=== PATIENT | male | born 1935 | race Caucasian/White ===

== ENCOUNTER 2021-02-16 15:41 | Emergency (ER) | payer MEDICARE ==
[~2021-02-16] VITALS: Ht 175.3 cm; Wt 76.7 kg
[2021-02-16 17:12] LABS: CREATININE 0.7 mg/dL (0.7-1.3); POTASSIUM 3.9 mmol/L (3.5-5.1)
[2021-02-16 17:18] LABS: ABSOLUTE NEUTROPHILS 2.4 thou/uL (1.4-8.2); BASOPHILS 0.9 % (0.0-2.0); EOSINOPHILS 3.9 % (0.0-3.0); HEMATOCRIT 36.1 % (42.0-52.0); HEMOGLOBIN 11.9 gm/dL (14.0-18.0); LYMPHOCYTES 35.5 % (24.0-44.0); MCHC 32.9 g/dL (28.0-37.0); MCV 91.1 fL (80.0-100.0); MONOCYTES 6.5 % (1.0-8.0); PLATELET COUNT 178 thou/uL (150-400); POLYS 53.2 % (36.0-66.0); RBC 3.96 mil/uL (4.50-6.00); RDW 15.1 % (10.5-14.5); WBC 4.5 thou/uL (4.0-11.0)
[2021-02-16 18:10] LABS: URINE BILIRUBIN NEGATIVE (Negative); URINE BLOOD NEGATIVE (Negative); URINE CLARITY CLEAR; URINE COLOR YELLOW; URINE GLUCOSE-RANDOM* TRACE (Negative); URINE KETONES NEGATIVE (Negative); URINE LEUKOCYTES-REFLEX NEGATIVE (Negative); URINE NITRITE-REFLEX NEGATIVE (Negative); URINE PROTEIN (DIPSTICK) NEGATIVE (Negative); URINE SPECIFIC GRAVITY >= 1.030 (1.005-1.035)
[2021-02-16] MEDS ORDERED: VENLAFAXINE HCL75 M1 PO (19:11)
[2021-02-16] MEDS ORDERED: LEVOTHYROXINE150 MCG PO (19:11)
[2021-02-16] MEDS ORDERED: ARIPIPRAZOLE5 MG PO (19:12)
[2021-02-16] MEDS ORDERED: AMBIEN 5 MG TABL5 M1 PO (19:12)
[2021-02-16] MEDS ORDERED: CLOPIDOGREL75 MG PO (19:12)
[2021-02-16] MEDS ORDERED: METOPROLOL SUCC25 M1 PO (19:12)
[2021-02-16] MEDS ORDERED: EUTHYROX150 MCG PO (19:12)
[2021-02-16] MEDS ORDERED: DICYCLOMINE HCL20 MG PO (19:12)
[2021-02-16] MEDS ORDERED: LIPITOR 40 MG T40 M1 PO (19:13)
[2021-02-16] MEDS ORDERED: METFORMIN HCL500 M1 PO (19:13)
[2021-02-16] MEDS ORDERED: GABAPENTIN 100100 MG PO (19:13)
[2021-02-16] MEDS ORDERED: ALENDRONATE SOD70 MG PO (19:13)
[2021-02-16 20:16] VITALS: BP 129/63
--- NOTE | 2021-02-17 08:16 | EKG ---
[address] [employer] [place] [address] ELECTROCARDIOGRAM REPORT Name: TRISTA RAGLAND Room #: MATTHEW Valerio#: [id number] Admission: 02/16/21 Attend Phys: Discharge: 02/16/21 Date of : 39 Report #: [id number] ED Test Date: 2021-02-16 Test Time: 16:27:13 Pat Name: TRISTA RAGLAND Department: Room: Gender: Asparagus Buncher: Leandra : 1935 Requested By: Hailey Quintanilla Order Number: [id number] MD: Lauri Medina Measurements Intervals [place] Rate: 73 P: 21 FL: 165 QRS: 60 QRSD: 99 T: 60 QT: 446 QTc: 492 Interpretive Statements Sinus rhythm Borderline prolonged QT interval No previous ECG available for comparison Electronically Signed On 02-17-2021 8:16:07 PHLEBOTOMY SERVICES REPRESENTATIVE by Lauri Medina [email or web address] <ELECTRONICALLY SIGNED> By: Lauri Medina MD, [facility] 02/17/21 0816 1627 1627 Lauri Medina MD, FACC /EPI
== END 2021-02-16 20:29 ==
LOC: ER 15:41
PROVIDERS: Emergency Medicine
DX: F03.91 Unspecified dementia, unspecified severity, with behavioral disturbance (principal); Z20.822 Contact with and (suspected) exposure to COVID-19; Z79.899 Other long term (current) drug therapy

== ENCOUNTER 2021-02-16 17:01 | Inpatient (IN) | payer MEDICARE ==
[~2021-02-16] VITALS: Ht 170.2 cm; Wt 80.3 kg
[2021-02-16] MEDS ORDERED: VENLAFAXINE HCL75 M1 PO (19:11)
[2021-02-16] MEDS ORDERED: LEVOTHYROXINE150 MCG PO (19:11)
[2021-02-16] MEDS ORDERED: METOPROLOL SUCC25 M1 PO (19:12)
[2021-02-16] MEDS ORDERED: EUTHYROX150 MCG PO (19:12)
[2021-02-16] MEDS ORDERED: DICYCLOMINE HCL20 MG PO (19:12)
[2021-02-16] MEDS ORDERED: ARIPIPRAZOLE5 MG PO (19:12)
[2021-02-16] MEDS ORDERED: CLOPIDOGREL75 MG PO (19:12)
[2021-02-16] MEDS ORDERED: AMBIEN 5 MG TABL5 M1 PO (19:12)
[2021-02-16] MEDS ORDERED: METFORMIN HCL500 M1 PO (19:13)
[2021-02-16] MEDS ORDERED: GABAPENTIN 100100 MG PO (19:13)
[2021-02-16] MEDS ORDERED: ALENDRONATE SOD70 MG PO (19:13)
[2021-02-16] MEDS ORDERED: LIPITOR 40 MG T40 M1 PO (19:13)
[2021-02-16 19:30] VITALS: BP 149/59
[2021-02-17 04:13] LABS: CHOLESTEROL 137 mg/dL (<200); HDL CHOLESTEROL 39 mg/dL (>40); LDL CHOLESTEROL 58 mg/dL (<100); TC:HDL 3.5 Ratio (Not establshd); TRIGLYCERIDE 204 mg/dL (<150); VLDL 41 mg/dL (<40)
--- NOTE | 2021-02-17 04:18 | NUR ---
02/16/21 arrived on the [facility] floor @ 2100, accompanied by x1 staff from [facility] ED. Transferred to bed 527B. A&OX1 ORIENTED TO PERSON ONLY. KNOWS HIS BUT DOES NOT KNOW TODAYS DATE. POST FALL ON 01/28, PATIENT HAD A BRAIN BLEED WHICH WAS TREATED @ ANOTHER HOSPITAL. RESIDES @ HOME WITH AND A GRANDSON IS TEMPORARY IN THE HOME TO ASSIST WITH THE PATIENT'S CARE. PATIENT HAS BECOME AGRESSIVE AND PHYSICALY COMBATITIVE WITH THE GRANDSON. ADMITTED WITH DX OF DEMENTIA WITH BEHAVIORS. INCREASE IN CONFUSION AND AGRESSION. UA NEGATIVE FOR INFECTION. ACTIVITY UP WITH WALKER, ALTHOUGH FORGETS TO USE HIS WALKER, WHICH IS WORSE AT NIGHT. FAMILY REPORTS BEHAV BECOMES WORSE IN THE AFTERNOON AND OVERNIGHT. HISTORY OBTAINED FROM GRANDDAUGHTER WHO IS THE DPOA, AND GAVE CONSENT TO TREAT. PATIENT WEARS GLASSES THAT HE HAS WITH HIM, DENTURES WHICH ARE IN HIS BATHROOM AND HAVE BEEN CLEANED. HAS A CPAP WHICH IS NOW IN THE MED ROOM. OWNS HEARING AIDES, BUT DOES NOT WEAR THEM AND ARE AT HOME. COVID PCR IS NEGATIVE. TAKES MEDS WHOLE WITH WATER. DENIES PAIN, ONLY SKIN ISSUE IS A SMALL SCAB ON THE BACK OF HIS RIGHT HAND. REPORTS HIS HOBBY IS ROMAN CATHOLIC MUSIC. REPORTS THAT HE GOES TO SEVERAL CHURCHES, BUT HAS TROUBLE NAMING THEM OTHER THAT ABLE TO SAY ONE IS A CHRISTIANITY ZOROASTRIAN, AND ONE IS NON-CONGREGATIONAL. HT 5'7" 178.5 LBS. HRRR S1S2 NOTED, LUNGS CTA BILAT, ABD N X 4Q REPORTS HIS LAST BM WAS 2-3 DAYS AGO. TOE NAILS ARE THICK AND LONG, SKIN ON FEET IS DRY BUT INTACT. HIGH FALL RISK WITH A SOUZA SCALE OF 65. NKDA.
[2021-02-17 04:23] LABS: SERUM ASSESSMENT Clear
[2021-02-17 07:30] VITALS: BP 119/46
[2021-02-17 07:45] VITALS: BP 119/46
--- NOTE | 2021-02-17 16:08 | NUR ---
Emailed a request for a medicaid screening to Mahin Astorga with [employer]
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
[2021-02-17 19:30] VITALS: BP 113/66
--- NOTE | 2021-02-17 19:39 | NUR ---
Alert and orientated to name only. Denies SI/HI. Breath sounds clear. Reg HR auscultated. Color pink with brisk capillary refill and palpable peripheral pulses. No edema noted. Brief dry. Active bowel sounds over soft, rounded abdomen.
--- NOTE | 2021-02-17 19:50 | NUR ---
02/17/21 1900, SEATED IN A TRANG CHAIR IN THE DAY ROOM AT START OF SHIFT, APEARS TO BE RESTLESS. TELLS THAT HIS SON TOOK HIM TO THE [facility]AS STATION AT 0100 IN THE MORNING BUT ONLY GOT A LITTLE BIT OF GAS, GOT HOME AT 0300. HRRR, LUNGS CTA ABD N X 4Q. DENY SI/HI DENIES AH/VH. STATES THAT DOES NOT HAVE MUCH ANXIETY, STATES THAT HE HAS DEPRESSION ONCE IN A WHILE, BUT CANNOT FOLLOW THE TRAIN OF THOUGHT TO EXPRESS IF HE HAS DEPRESSION NOW.
[2021-02-17 22:00] VITALS: BP 113/66
[2021-02-18 01:06] LABS: GLYCOHEMOGLOBIN (HGB A1C) 7.2 % (4.8-5.6)
[2021-02-18 08:32] VITALS: BP 129/69
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
[2021-02-18 10:49] VITALS: BP 129/69
--- NOTE | 2021-02-18 13:24 | NUR ---
RESUMMED CARE FROM OVERNIGHT SHIFT THIS AM, PATIENT IN DAY ROOM SITTING QUIET. PATIENT ALERT TO SELF ONLY HE HAS A HISTORY OF A STROKE AND IS A TWO PERSON ASSIST. PATIENT HAS DIFFICULTY WITH WEIGHT BEARING, PATIENT IS A FRR FEED BREAKFAST. TOOK MEDICATION CRUSHED IN PUDDING PATIENTS ABDOMEN SOFT BOWEL SOUNDS PRESENT. PATIENTS LUNGS CLEAR WHENB I ASKED PATIENT ABOUT SI/HI/AH/VH HE SAID NO. WHEN DR MURGUIA ASKED PATIENT ABOUT HOW HE FELT, HE STATED HE DID NOT WANT ANOTHER STROKE. PATIENT ASKED IF HE COULD LIE DOWN FOR A WHILE HE STATES HE IS TIRED. WILL CONTINUE TO MONITOR PATIENT FOR SAFETY AND BEHAVIORS.
--- NOTE | 2021-02-18 17:28 | NUR ---
JARRETT and Dr. Sandoval participated in a family meeting with the Pt's DPOA and . Medication was discussed and placement. The DPOA stated she has spoken with [employer] and started the medicaid application. The family is in agreement to placement and will start to look at facilities in the areas they would like referrals sent to. There were no further questions or concerns. JARRETT will continue to follow.
[2021-02-18 19:42] VITALS: BP 107/70
[2021-02-18 19:45] VITALS: BP 107/70
--- NOTE | 2021-02-19 03:17 | NUR ---
PATIENT CARE WAS RESUMED AT 1900. HE IS AWAKE AND WAS IN THE DININIG ROOM. HE IS ABLE TO COMMUNICATE HIS NEEDS. LUNGS ARE CLEAR, BS ACTIVE X4 QUADS. HE IS INCONTINENT OF BOWEL AND BLADDER. DENIES PAINS/SI/AVH/HI. MAX ASSIT WITH CARE AND PERICARE PROVIDED. MEDS GIVEN WITH APPLE SAUCE. PATIENT IS A FALL RISK AND YELLOW TOP AND SOCKS ARE ON. AMBULATES WITH TRANG-CHAIR.
[2021-02-19 07:15] VITALS: BP 116/70
--- NOTE | 2021-02-19 17:20 | NUR ---
Alert and orientated to name only. Answers some questions coherently but has some confusion. Denies SI/HI. Reported generalized abdominal pain and given Tylenol and milk of magnesia given per order with some relief. [employer] equal and strong, pupils equal and briskly reactive. Calm and compliant most of the day. Breath sounds clear. Reg HR auscultated. Color pink with brisk capillary refill and palpable peripheral pulses. +1 edema in lower extremities. Continent of dark yellow urine. Frequent requests to use bathroom. Dr. Gaming notified, flomax ordered. Slow, slightly unsteady gait with walker, remains on high fall risk precautions. Currently eating dinner without s/o distress.
[2021-02-19 18:45] VITALS: BP 119/73
--- NOTE | 2021-02-20 05:26 | NUR ---
02-19-21 CARE TRANSFERRED 1899. LATER OBSERVED PT RESTING WITH EYES CLOSED IN BED, PT AWAKEN EASILY BUT DROWSY, PT AAOX1, VSS, RR EVEN AND NONLABOED RA. PT DENIES SI/HI AND PAIN AND OBSERVED NO S/S OF PAIN AND NO HI/HI BEHAVIOR. DURING MEDICATION ADMIN PT HAD NO DIFFICULTIES. PT BED WAS ADJUSTED FOR COMFORT. PT WILL CONTINUE TO BE MONITOR PER [facility] PROT[facility].
[2021-02-20 14:50] VITALS: BP 135/63
[2021-02-20 14:56] VITALS: BP 135/63
--- NOTE | 2021-02-20 15:47 | NUR ---
Assummed pt care this morning from overnight shift. Client was in gerichair sitting upright in activity area. Client presented pleasant and confused at this time. Client was asked his name, and stated "I don't know it" then stated it was "Tobias Meraz" when asked. With further prompting from this nurse and a physician, client was able to recall his name. When asked where he was, client stated that he was on a trip with his . Client was reoriented at this time. Client was not cognisant of the year or month. Client denied any depression or anxiety at this time. Client stated "not that I know of" when asked about having any auditory or visual hallucinations. When asked about suicidal or homicidal intent, client stated "no, I'm satisfied with my life." Client denied any pain originally, but then stated he had a headache later. Prn tylenol given for this that provided partial pain relief. Client lung sounds were clear and slightly diminished. Client bowel sounds present with soft abdomen. Last BM three days ago per shift report. No current concerns at this time.
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
[2021-02-20 19:17] VITALS: BP 113/66
--- NOTE | 2021-02-21 05:54 | NUR ---
Assumed care of pt at 1900. Pt calm et cooperative this shift. Took medications crushed in pudding without difficulty. Ambulates with assistance of deepti-chair. VSWN. Health assessment with no abnormalities noted at present time. Unable to assess SI/HI/AVH due to cognitive deficits but pt does not demonstrate any symptoms of acute emotional distress at present time. No behaviors noted this shift. COVID specimen obtained this AM et sent to the lab for analysis. Currently resting in bed with eyes closed. Will continue to monitor per unit protocol.
[2021-02-21 09:57] VITALS: BP 107/59
[2021-02-21 10:19] VITALS: BP 107/59
--- NOTE | 2021-02-21 13:57 | NUR ---
RESUMMED CARE FROM OVERNIGHT THIS AM, PATIENT IN DAY ROOM SITTING QUIET IN TRANG CHAIR. PATIENT ATE BREAKFAST TOOK MEDICATION WITHOUT INCIDENCE CRUSHED IN OATMEAL. PATIENT DENIES SI/HI/AH/VH AT PRESENT PATIENTS ABDOMEN SOFT BOWEL SOUNDS PRESENT. PATIENTS LUNGS CLEAR PATIENT TALKED WITH GRANDDAUGHTER THIS AM CONVERSATION WENT WELL. PATIENT HAS NOTED DISPLAYED ANY BEHAVIORS; WILL CONTINUE TO MONITOR PATIENT FOR SAFETY AND BEHAVIORS.
[2021-02-21 19:23] VITALS: BP 110/65
--- NOTE | 2021-02-22 05:37 | NUR ---
Assumed care of pt at 1900. Pt calm et cooperative this shift with pleasant demeanor. Took medications crushed in apple sauce with no difficulties. Ambulates with assistance of deepti-chair. VSWNL. Health assessment with no abnormalities noted at present time. Unable to assess SI/HI/AVH due to cognitive deficit but does not demonstrate any symptoms of acute emotional distress at present time. PRN Zyprexa PO given after HS meds for anxiety et to assist pt to relax for sleep. Currently resting in bed with eyes closed. Will continue to monitor per unit protocol.
--- NOTE | 2021-02-22 09:38 | NUR ---
PATIENT CARE ASSUMED AT 1900- PLEASANTLY CONFUSED. TOOK MEDICATONS COMPLIANTLY CRUSHED IN APPLE SAUCE. PATIENT MAKES NEEDS KNOWN WHEN NEEDING TO VOID OR BATHROOM USE. TWO PERSON ASSIST FOR THIS. NO PAIN WHEN ASSESSED. WILL CONTINUE TO MONITOR PATIENT FOR ANY CONCERNS AND ADDRESS ACCORDINGLY.
[2021-02-22 10:28] VITALS: BP 111/64
[2021-02-22 20:14] VITALS: BP 105/61
--- NOTE | 2021-02-23 02:45 | NUR ---
PATIENT CARE WAS RESUMED AT 1900 AND HE WAS IN BED. ABLE TO VERBALIZSE HIS CONCERNS. LUNGS ARE CLEAR BS, ACTIVE X4 QUADS. HE IS CONTINIET OF BOWEL AND BLADDER. HE DENIES PAINS/SI/AVH/HI. HE TOOK HIS MEDS WHOLE, ON FALL PRECAUTION, BED IS LOW, LOCKED AND ALARMED. YELLOW SOCKS AND TOP ON. [id number] CHECKS ARE ACTIVE.HE IS COOPERATIVE WITH CARE. ASSISTED WITH ADLS. CONTINUE CARE AND MONITOR.
[2021-02-23 09:14] VITALS: BP 92/56
--- NOTE | 2021-02-23 12:51 | NUR ---
RT Progress Note- Art has been present in the milieu much of each day since his admission. His participation in recreation therapy group varies depending on level of orientation and alertness at that time. He has not displayed aggression or agitation with RT staff. Will continue to encourage patient participation.
--- NOTE | 2021-02-23 17:28 | NUR ---
JARRETT spoke with Jaclyn concerning discharge. Jaclyn is still wanting the Pt to return to the home and stated the family would be providing 24/ caregiving for the Pt. Discharge was set for 02/25/2021 @ 1300. Jaclyn will pick the Pt up to transport. JARRETT called [facility] in an attempt to schedule a follow up appointment for Pt with psychiatrist Dr. Calvo. JARRETT left a message with scheduling for a call back on the matter. JARRETT was able to schedule a PCP appoinment for the Pt with DR. Holbrook at [facility], for 03/11/2021 @ 0677
--- NOTE | 2021-02-23 18:38 | NUR ---
SLEPT LATE THIS AM UNTIL APPROX 1000-COMPLIENT WITH TAKING PO MEDS REQUIRES ASSIST X 3 TO TRANSFER TO /FROM WC/BED COMMODE. HAS HAD THREE LARGE BM'S THIS SHIFT. ABLE TO FEED SELF-DENIES PAIN/DISCOMFORT DURING AM ASSESSMENT WITH THIS NURSE. CONVERSATION DISORGANIZED IDENTIFYING THIS NURSE HIS BOSS AND THEN STATING HE WAS UPSET BECAUSE HE FORGOT TO TAKE TRASH OUT. ORIENTED TO PERSON ONLY.
[2021-02-23 20:25] VITALS: BP 125/49
--- NOTE | 2021-02-23 23:22 | NUR ---
At onset of shift stacker pt was sitting awake in deepti chair in day room. Pt was alert and oriented only to self. Pt is a max assist when transferring. Pt was compliant with medications when mixed with applesauce. Pt was pleasantly confused. Pt made statements to nurse that he was going to leave with his and sister. Pt also told RN that he loved her. Pt did attempt to crawl out of bed, but was compliant with repositioning. Fall precautions are in place. Will continue to monitor.
[2021-02-24 07:15] VITALS: BP 117/57
[2021-02-24 10:07] VITALS: BP 117/57
--- NOTE | 2021-02-24 10:54 | NUR ---
Alert and orientated to name only. Has occassional coherent speech. Repeatedly wanting to go to work or leave unit. Breath sounds clear. Reg HR auscultated. Color pink with brisk capillary refill and palpable peripheral pulses. Minimal edema in lower extremities. Brief dry this AM, but requested to use bathroom later in AM. Active bowel sounds over soft, rounded abdomen. Sitting in recliner, able to stand and bear wt. Currently in day room talking with peers.
[2021-02-24 20:13] VITALS: BP 96/57
--- NOTE | 2021-02-24 21:41 | NUR ---
At the onset of shift production supervisor pt was sitting awake in deepti chair in day room. Pt was alert and oriented to self only. Speech was clear and soft. Pt talked about taking care of some files. Pt was pleasantly confused. Pt appeared anxious at times and would try to stand up or push the table away from him, but he was redirectable. Pt was compliant with medication and vital signs. Fall precautions are in place. Will continue to monitor.
[2021-02-25] MEDS ORDERED: FLOMAX0.4 MG PO (11:30)
[2021-02-25] MEDS ORDERED: DIVALPROEX SOD250 M1 PO (11:32)
[2021-02-25] MEDS ORDERED: TRAZODONE HCL50 MG PO (11:33)
[2021-02-25] MEDS ORDERED: RISPERIDONE0.5 M1 SUBLING (11:34)
[2021-02-25] MEDS ORDERED: METFORMIN HCL500 M1 PO (11:35)
[2021-02-25] MEDS ORDERED: PEPCID20 MG PO (11:35)
[2021-02-25] MEDS ORDERED: CALTRATE-600 W1 EACH PO (11:36)
[2021-02-25 12:08] VITALS: BP 96/57
--- NOTE | 2021-02-25 13:25 | NUR ---
SW contacted [facility] services concerning restarting services for Pt at discharge. They informed they would be able to restart services and request discharge and a new order be sent. JARRETT was able to fax over the requested information.
[2021-02-25 14:06] VITALS: BP 116/59
[2021-02-25 16:41] VITALS: BP 116/59
--- NOTE | 2021-02-25 16:46 | NUR ---
Assumed pt care this morning from overnight shift. Pt was calm and cooperative, sitting on bed during this shift. Pt was assisted with personal cares at this time and helped with toileting. Pt was notified of this discharge to home today. Pt voiced some anxiety about this at this time, but was overall pleased with this outcome. During assessment, pt was oriented to self only. Pt presented with slight abdominal pain and was given prn tylenol which provided partial pain relief at this time. Client stated, "about as much as anyone" when asked if he had any depression or anxiety. Client stated "no, why would I" when asked about suicidal or homicidal intent. Client did not answer when asked about audio or visual hallucinations. Bowel sounds present. Lung sounds clear. Client's discharge paperwork was prepped after lunch time. Client was put into clothing from home from discharge, and his things were gathered so that he could take them with him. Client was picked up by and granddaughter at this time, with staff assisting client into wheelchair and helping him into their car in the parking lot. All items and discharge paperwork were with client. No further concerns at this time.
--- NOTE | 2021-02-26 09:16 | D ---
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 ADDITIONAL DIAGNOSES: Include hypertension, diabetes, hypothyroidism, abnormal TSH, status post recent fall with self-resolving subdural hematoma, peripheral neuropathy. The patient is discharging to his home where he lives with his . The patient requires 24-hour care and supervision and his granddaughter Jaclyn is [employer] senior case manager is very involved and the family tends to provide this. DISCHARGE MEDICATIONS: As follows: Levothyroxine 150 mcg oral daily for hypothyroidism, venlafaxine 75 mg oral daily for depression, Plavix 75 mg oral daily for heart protection. Bentyl 20 mg oral daily, it is antispasmodic. Alendronate sodium 70 mg oral weekly, for osteoporosis, atorvastatin 40 mg oral daily for hyperlipidemia, tamsulosin 0.4 mg oral daily at 1700 hours for BPH, Depakote sodium ER 1250 mg oral at bedtime for mood stabilization, trazodone 50 mg oral at bedtime p.r.n. for sleep, risperidone 0.75 mg sublingual, Solutab daily at noon and 2100 hours, famotidine 20 mg oral daily for GERD, metformin XR 1000 mg twice daily with meals, calcium carbonate with vitamin D3 one tablet oral twice daily. [facility] will be providing home health for the patient, prescribed order for PT, OT, social work and nursing. The patient has a primary care physician appointment with Dr. Negrete at [facility] 03/11/2021 at 1440 hours. The patient has a psychiatrist, Dr. Soni, which we were unable to schedule an appointment for but patient should see ideally within 2 weeks of returning home. LABORATORY DATA: This admission, hematology from 02/16, white count 4.5, H and H 11.9 and 36.1, platelet count 178. Chemistry: Sodium 138, potassium 3.9, chloride 104, bicarbonate 26, anion gap 8, BUN 14, creatinine 0.7, estimated GFR 108. Hemoglobin A1c 7.2, calcium 9.0. Triglycerides 204, cholesterol 137, LDL 58, HDL 39. TSH 0.452. Trace glucose in his urine, otherwise negative. [address] [address] DISCHARGE SUMMARY Name: TRISTA RAGLAND Room #: 527B-B DIS IN M.R.#: [id number] Admission: 02/16/21 Attend Phys: Trenton Gaming DO Discharge: 02/25/21 Date of : 39 Report #: [id number] Depakote level was low on 02/22 at 33, it is increased to 1250 mg. This should have a recheck as outpatient in the next 1-2 weeks. SARS-CoV-2 PCR was not detected. SARS-CoV-2 PCR was negative on the and . REASON FOR ADMISSION: Back on or so february, an 85-year-old male brought by his granddaughter. Apparently, he had recently been taken to [facility]. He was aggressive towards family and grandson, so granddaughter contacted our nurse dealership manager and from the [place], we admitted him. HOSPITAL COURSE: The patient was admitted to Geriatric Psychiat[facility] Unit, initially a bit on the impulsive side. EKG done on 02/16 showed QTc 492, QT 446, [place] [id number] milliseconds, interval rate 73, sinus rhythm. I started him on olanzapine and Depakote. I believe we switched to risperidone due to increase of the excess sedation. Depakote level came back low at 33 on 750, so increased it to 1250. Did not have enough time for a second Depakote level, inpatient. I have recommended the patient be placed in long-term care due to his immobility and his requirements. Family changed their mind on this perhaps for financial reasons. At discharge, the patient was not suicidal or homicidal, oriented to self, not situation, not to time. PHYSICAL EXAMINATION: VITAL SIGNS: On the day of discharge, temperature 35.9, pulse 98, respirations 17, BP 167/59, O2 sat 99%. MUSCULOSKELETAL: in wheelchair, dressed ins treet clothes, gait not tested. MENTAL STATUS EXAMINATION: Well-developed, age-appearing male. Attention limited. Concentration limited. Speech normal rate, volume, and tone. Thought process: Linear and goal directed. Thought content: fauir poverty., denied auditory or visual type hallucinations. Mood and affect was okay, euthymic, congruent. Memory not formally tested. Insight and judgment were limited. Fund of knowledge below average. Prognosis for the patient is guarded given age of 85, medical comorbidities and having neurodegenerative disorder. <ELECTRONICALLY SIGNED> By: Trenton Gaming, 02/26/2116 1949 Trenton Gaming, /nt
== END 2021-02-25 13:15 | disposition home health service (06) | DRG 57 ==
LOC: SBH 17:01
PROVIDERS: ADMIT Psychiatry & Neurology Psychiatry; ATTEND Psychiatry & Neurology Psychiatry
DX: G30.9 Alzheimer's disease, unspecified (principal); F01.51 Vascular dementia, unspecified severity, with behavioral disturbance; F02.81 Dementia in other diseases classified elsewhere, unspecified severity, with behavioral disturbance; F23 Brief psychotic disorder; Z20.822 Contact with and (suspected) exposure to COVID-19; I10 Essential (primary) hypertension; E11.42 Type 2 diabetes mellitus with diabetic polyneuropathy; E03.9 Hypothyroidism, unspecified; G47.00 Insomnia, unspecified; F32.A Depression, unspecified; Z66 Do not resuscitate; E78.5 Hyperlipidemia, unspecified; R53.81 Other malaise; Z87.891 Personal history of nicotine dependence; Z79.899 Other long term (current) drug therapy; Z28.21 Immunization not carried out because of patient refusal
CPT/HCPCS: 10880